=== PATIENT | female | born 1985 | race Caucasian/White ===

== ENCOUNTER 2017-01-28 16:50 | Emergency (ER) | payer MEDICAID ==
[~2017-01-28] VITALS: Ht 170.2 cm; Wt 49.9 kg
[~2017-01-28 16:50] MED LIST: CLIN1CAP3; HYDR7.5T
[2017-01-28] MEDS ORDERED: IPRATROPIUM BROM 0.5 MG/2.5ML INH SOL NEB ONE ×2 (17:15→17:30)
[2017-01-28] MEDS ORDERED: ALBUTEROL SULF 2.5 MG/0.5ML(0.5%) NEB SOLN NEB ONE ×3 (17:15→17:45)
[2017-01-28] MEDS ORDERED: methylPREDNISolone SOD SUCC 125 MG/2 ML VL IM ONE (17:30)
[2017-01-28] MEDS ORDERED: ALBUTEROL SULF 2.5 MG/0.5ML(0.5%) NEB SOLN ONE (17:35)
[2017-01-28 18:06] VITALS: BP 105/63
== END 2017-01-28 18:22 | disposition home or self-care (01) ==
LOC: ER 16:54
DX: J45.901 Unspecified asthma with (acute) exacerbation (principal); J20.9 Acute bronchitis, unspecified; Z90.49 Acquired absence of other specified parts of digestive tract; F17.210 Nicotine dependence, cigarettes, uncomplicated
CPT/HCPCS: 94640; 96372; 99284; J2930

== ENCOUNTER 2019-05-13 14:19 | Emergency (ER) | payer MEDICAID ==
[~2019-05-13] VITALS: Ht 170.2 cm; Wt 52.2 kg
[~2019-05-13 14:19] MED LIST changes: +CLIN150C7; -CLIN1CAP3; +METH5TAB2 PO
[2019-05-13 14:30] VITALS: BP 127/79
== END 2019-05-13 19:04 | disposition left against medical advice (07) ==
LOC: ER 14:19
DX: M54.9 Dorsalgia, unspecified (principal); Z53.21 Procedure and treatment not carried out due to patient leaving prior to being seen by health care provider

== ENCOUNTER 2020-07-22 17:11 | Inpatient (IN) | payer MEDICAID ==
[~2020-07-22] VITALS: Ht 167.6 cm; Wt 62.1 kg
[~2020-07-22 17:11] MED LIST changes: -CLIN150C7; +CLIN150C8
[2020-07-22] MEDS ORDERED: SODIUM CHLORIDE 0.9% 1,000 ML IV ONE (17:30)
[2020-07-22 17:47] LABS: Basophils # (auto) 0.1 10 ^3/uL (0-0.2); Eosinophils # (auto) 0 10 ^3/uL (0-0.8); Lymphocytes # (auto) 1.2 10 ^3/uL (0.4-5.4); White Blood Cell 3.5 10^3/uL (4.4-10.8)
[2020-07-22 17:49] LABS: Monocytes # (auto) 0.2 10 ^3/uL (0-1.3)
[2020-07-22 17:54] LABS: Hematocrit 22.6 % (36.0-46.0); Mean Corpuscular Hemoglobin 24.1 pg (28.0-32.0); Platelet Count (auto) 143 10^3/uL (140-450); Red Blood Cells 2.88 10^6/uL (4.0-5.20)
[2020-07-22 17:57] LABS: Basophils % (auto) 3.3 % (0.0-2.0); Eosinophils % (auto) 1.3 % (0.0-7.0); Lymphocytes % (auto) 32.9 % (10.0-50.0); Mean Corpuscular Hgb Conc. 30.8 g/dL (32.0-36.0); Mean Corpuscular Volume 78.3 fL (80.0-100.0); Monocytes % (auto) 4.5 % (0.0-12.0); Nucleated Red Blood Cells % 0.2 %
[2020-07-22 17:59] LABS: Red Cell Distribution Width 21.7 % (11.8-14.3)
[2020-07-22 18:24] LABS: Albumin 4.2 g/dL (3.4-5.0); Anion Gap 14 (5-15); BUN/Creatinine Ratio 17.1; Blood Urea Nitrogen 7 mg/dL (7-18); Calcium 8.4 mg/dL (8.5-10.1); Carbon Dioxide 23 mmol/L (21-32); Chloride 99 mmol/L (98-107); GFR African American 227 mL/min; GFR Non-African American 188 mL/min; Glucose 126 mg/dL (74-106); Magnesium 1.9 mg/dL (1.6-2.6); Potassium 3.3 mmol/L (3.5-5.1); Sodium 136 mmol/L (136-145)
[2020-07-22] MEDS ORDERED: LORazepam 2MG/ML-1ML VIAL IV ONE (18:30)
[2020-07-22 18:32] LABS: Alanine Aminotransferase 62 U/L (13-56); Alkaline Phosphatase 107 U/L (45-117); Aspartate Aminotransferase 215 U/L (15-37); Bilirubin, Total 0.3 mg/dL (0.2-1.0); Total Protein 8.1 g/dL (6.4-8.2)
[2020-07-22] MEDS ORDERED: ONDANSETRON HCL 4 MG/2 ML VIAL IV PRN (19:30)
[2020-07-22] MEDS ORDERED: MORPHINE SULFATE 4 MG/ML SYR/VIAL IV PRN (19:30)
[2020-07-22] MEDS ORDERED: ACETAMINOPHEN 325 MG TAB PO PRN (19:30)
[2020-07-22] MEDS ORDERED: NITROGLYCERIN 0.4 MG SL TAB SL PRN (19:30)
[2020-07-22] MEDS ORDERED: MEPERIDINE HCL (25 MG/ML) 1ML VIAL IV PRN (19:30)
[2020-07-22 20:18] VITALS: BP 115/71
[2020-07-22 20:40] LABS: Amphetamine Screen, Urine NEGATIVE (NEGATIVE); Barbiturate Scree,Urine NEGATIVE (NEGATIVE); Benzodiazephine Screen, Urine NEGATIVE (NEGATIVE); Cannabinoid Screen, Urine NEGATIVE (NEGATIVE); Cocaine Screen, Urine NEGATIVE (NEGATIVE); Opiate Scree,Urine NEGATIVE (NEGATIVE); Phencyclidine Screen, Urine NEGATIVE (NEGATIVE)
[2020-07-22 20:43] VITALS: BP 110/59
[2020-07-22] MEDS ORDERED: TEMAZEPAM 15 MG CAP PO PRN (22:00)
[2020-07-22 22:44] VITALS: BP 103/63
[2020-07-22 23:00] VITALS: BP 103/67
[2020-07-22] MEDS: SODIUM CHLORIDE 0.9% 1,000 ML IV SCH (23:00)
[2020-07-22] MEDS: FAMOTIDINE 20 MG TAB PO SCH ×2 (23:20→23:47)
[2020-07-23] VITALS (7 sets, daily range): BP systolic 101–127; BP diastolic 61–82
[2020-07-23] MEDS ORDERED: FERR1TAB36 PO (00:56)
[2020-07-23] MEDS: FOLIC ACID 1 MG, MULTIPLE VITAMIN 10 ML, MAGNESIUM SULF SDV 50% 8 MEQ, THIAMINE INJ 100... INJ SCH ×10 (01:07→12:15)
[2020-07-23] MEDS: KETOROLAC TROMETH 30 MG/ML 1ML VIAL IV PRN ×3 (03:48→21:54)
[2020-07-23 06:22] LABS: Eosinophils # (auto) 0 10 ^3/uL (0-0.8); Hemoglobin 7.6 g/dL (12.2-16.2); Lymphocytes # (auto) 0.6 10 ^3/uL (0.4-5.4); Monocytes # (auto) 0.2 10 ^3/uL (0-1.3); Neutrophils # (auto) 2.2 10 ^3/uL (1.6-8.6); Nucleated Red Blood Cells % 0.2 %; Platelet Count (auto) 108 10^3/uL (140-450); White Blood Cell 3.1 10^3/uL (4.4-10.8)
[2020-07-23 06:26] LABS: Basophils # (auto) 0.1 10 ^3/uL (0-0.2); Basophils % (auto) 2.1 % (0.0-2.0); Hematocrit 23.8 % (36.0-46.0); Lymphocytes % (auto) 19.1 % (10.0-50.0); Mean Corpuscular Hemoglobin 26.3 pg (28.0-32.0); Mean Corpuscular Hgb Conc. 32.1 g/dL (32.0-36.0); Mean Corpuscular Volume 82.2 fL (80.0-100.0); Neutrophils % (auto) 71.8 % (37.0-80.0); Red Blood Cells 2.89 10^6/uL (4.0-5.20)
[2020-07-23 06:27] LABS: Red Cell Distribution Width 20.3 % (11.8-14.3)
[2020-07-23 06:32] LABS: Albumin 3.3 g/dL (3.4-5.0); Anion Gap 12 (5-15); Blood Urea Nitrogen 8 mg/dL (7-18); Calcium 7.6 mg/dL (8.5-10.1); Carbon Dioxide 22 mmol/L (21-32); Chloride 104 mmol/L (98-107); Glucose 76 mg/dL (74-106); Potassium 3.7 mmol/L (3.5-5.1); Sodium 138 mmol/L (136-145)
[2020-07-23 07:15] LABS: Alanine Aminotransferase 48 U/L (13-56); Alkaline Phosphatase 88 U/L (45-117); Aspartate Aminotransferase 160 U/L (15-37); BUN/Creatinine Ratio 24.2; Bilirubin, Total 0.3 mg/dL (0.2-1.0); Cholesterol 209 mg/dL (< 200); GFR African American 292 mL/min; GFR Non-African American 241 mL/min; Total Protein 6.6 g/dL (6.4-8.2)
[2020-07-23 07:16] LABS: HDL Cholesterol 100 mg/dL (40-59); Triglycerides 62 mg/dL (< 150)
[2020-07-23] MEDS: FERROUS SULFATE 325 MG TAB PO SCH ×2 (08:44→18:02)
[2020-07-23] MEDS: FAMOTIDINE 20 MG TAB PO SCH ×2 (08:45→21:09)
[2020-07-23] MEDS: ALPRAZolam 0.5 MG TAB PO PRN ×2 (08:57→18:02)
[2020-07-23] MEDS: SODIUM CHLORIDE 0.9% 1,000 ML IV SCH (09:30)
[2020-07-23 13:37] LABS: LDL Cholesterol 57 mg/dL (< 100)
[2020-07-23] MEDS: GABAPENTIN 300 MG CAP PO SCH ×2 (15:18→21:09)
[2020-07-24] MEDS: SODIUM CHLORIDE 0.9% 1,000 ML IV SCH ×2 (04:50→21:13)
[2020-07-24 05:00] VITALS: BP 116/76
[2020-07-24] MEDS: GABAPENTIN 300 MG CAP PO SCH ×3 (05:29→21:13)
[2020-07-24] MEDS: ALPRAZolam 0.5 MG TAB PO PRN ×2 (05:47→15:19)
[2020-07-24 09:00] VITALS: BP 101/66
[2020-07-24] MEDS: METOPROLOL TARTRATE 25 MG TAB PO SCH ×2 (10:18→21:14)
[2020-07-24] MEDS: FAMOTIDINE 20 MG TAB PO SCH ×2 (10:19→21:13)
[2020-07-24] MEDS: FERROUS SULFATE 325 MG TAB PO SCH ×2 (10:19→18:27)
[2020-07-24] MEDS: FOLIC ACID 1 MG, MULTIPLE VITAMIN 10 ML, MAGNESIUM SULF SDV 50% 8 MEQ, THIAMINE INJ 100... INJ SCH ×5 (11:56)
[2020-07-24 13:00] VITALS: BP 104/81
[2020-07-24 13:20] LABS: Urine Bacteria MANY /hpf (None Seen); Urine Blood Negative /uL (Negative); Urine Hyaline Cast FEW /lpf (0 - 2); Urine Specific Gravity 1.012 (1.001-1.035); Urine WBC 2 /hpf (0 - 5)
[2020-07-24 13:42] LABS: Basophils # (auto) 0.1 10 ^3/uL (0-0.2); Eosinophils # (auto) 0.1 10 ^3/uL (0-0.8); Hemoglobin 7.7 g/dL (12.2-16.2); Lymphocytes # (auto) 0.8 10 ^3/uL (0.4-5.4); Monocytes # (auto) 0.1 10 ^3/uL (0-1.3); Neutrophils # (auto) 2.3 10 ^3/uL (1.6-8.6); Red Cell Distribution Width 20.1 % (11.8-14.3); White Blood Cell 3.3 10^3/uL (4.4-10.8)
[2020-07-24 13:44] LABS: Eosinophils % (auto) 2.1 % (0.0-7.0); Hematocrit 24.3 % (36.0-46.0); Lymphocytes % (auto) 23.8 % (10.0-50.0); Mean Corpuscular Hemoglobin 25.9 pg (28.0-32.0); Mean Corpuscular Hgb Conc. 31.7 g/dL (32.0-36.0); Mean Corpuscular Volume 81.7 fL (80.0-100.0); Monocytes % (auto) 3.8 % (0.0-12.0); Neutrophils % (auto) 68.3 % (37.0-80.0); Nucleated Red Blood Cells % 0.6 %; Platelet Count (auto) 134 10^3/uL (140-450); Red Blood Cells 2.98 10^6/uL (4.0-5.20)
[2020-07-24 14:00] LABS: INR 0.97 (0.9-1.15); Partial Thromboplastin Time 24.8 sec (23.0-31.2)
[2020-07-24 14:02] LABS: Albumin 3.2 g/dL (3.4-5.0); Calcium 8.1 mg/dL (8.5-10.1); Magnesium 2.1 mg/dL (1.6-2.6); Potassium 3.7 mmol/L (3.5-5.1)
[2020-07-24 14:07] LABS: BUN/Creatinine Ratio 17.1; Bilirubin, Total 0.4 mg/dL (0.2-1.0); Total Protein 6.4 g/dL (6.4-8.2)
[2020-07-24 17:14] VITALS: BP 110/76
[2020-07-24] MEDS: KETOROLAC TROMETH 30 MG/ML 1ML VIAL IV PRN (20:21)
[2020-07-24 22:00] VITALS: BP 114/67
[2020-07-25] MEDS: GABAPENTIN 300 MG CAP PO SCH ×3 (04:55→21:15)
[2020-07-25] MEDS: ALPRAZolam 0.5 MG TAB PO PRN ×2 (04:55→13:54)
[2020-07-25 04:57] VITALS: BP 113/64
[2020-07-25 09:00] VITALS: BP 111/70
[2020-07-25] MEDS: METOPROLOL TARTRATE 25 MG TAB PO SCH ×2 (10:53→21:15)
[2020-07-25] MEDS: FERROUS SULFATE 325 MG TAB PO SCH ×2 (10:53→18:12)
[2020-07-25] MEDS: FAMOTIDINE 20 MG TAB PO SCH ×2 (10:54→21:15)
[2020-07-25] MEDS: FOLIC ACID 1 MG, MULTIPLE VITAMIN 10 ML, MAGNESIUM SULF SDV 50% 8 MEQ, THIAMINE INJ 100... INJ SCH ×5 (12:49)
[2020-07-25 12:58] VITALS: BP 111/75
[2020-07-25] MEDS: SODIUM CHLORIDE 0.9% 1,000 ML IV SCH (13:32)
[2020-07-25 17:17] VITALS: BP 112/73
[2020-07-25] MEDS: levoFLOXacin 500MG 100 ML IV SCH (18:12)
[2020-07-25 22:00] VITALS: BP 115/78
[2020-07-25] MEDS: LORazepam 0.5 MG TAB PO PRN (22:09)
[2020-07-26] MEDS: SODIUM CHLORIDE 0.9% 1,000 ML IV SCH (05:06)
[2020-07-26] MEDS: GABAPENTIN 300 MG CAP PO SCH (05:06)
[2020-07-26 05:19] VITALS: BP 95/57
[2020-07-26 06:56] LABS: Basophils # (auto) 0.1 10 ^3/uL (0-0.2); Basophils % (auto) 1.2 % (0.0-2.0); Eosinophils # (auto) 0.1 10 ^3/uL (0-0.8); Eosinophils % (auto) 1.5 % (0.0-7.0); Hemoglobin 7.6 g/dL (12.2-16.2); Lymphocytes # (auto) 0.7 10 ^3/uL (0.4-5.4); Lymphocytes % (auto) 17.4 % (10.0-50.0); Mean Corpuscular Hemoglobin 26.5 pg (28.0-32.0); Mean Corpuscular Hgb Conc. 31.7 g/dL (32.0-36.0); Mean Corpuscular Volume 83.6 fL (80.0-100.0); Monocytes # (auto) 0.3 10 ^3/uL (0-1.3); Monocytes % (auto) 6.3 % (0.0-12.0); Neutrophils % (auto) 73.6 % (37.0-80.0); Nucleated Red Blood Cells % 0.3 %; Platelet Count (auto) 164 10^3/uL (140-450); Red Blood Cells 2.87 10^6/uL (4.0-5.20); White Blood Cell 4.1 10^3/uL (4.4-10.8)
[2020-07-26 07:18] LABS: Potassium 3.8 mmol/L (3.5-5.1)
[2020-07-26 07:26] LABS: Albumin 3.1 g/dL (3.4-5.0); BUN/Creatinine Ratio 11.1; Bilirubin, Total 0.3 mg/dL (0.2-1.0); Calcium 8.2 mg/dL (8.5-10.1); Magnesium 2.2 mg/dL (1.6-2.6)
[2020-07-26] MEDS: FERROUS SULFATE 325 MG TAB PO SCH (07:51)
[2020-07-26] MEDS: LORazepam 0.5 MG TAB PO PRN (07:51)
[2020-07-26 09:00] VITALS: BP 109/71
[2020-07-26] MEDS: METOPROLOL TARTRATE 25 MG TAB PO SCH (09:33)
[2020-07-26] MEDS: FAMOTIDINE 20 MG TAB PO SCH (09:33)
[2020-07-26] MEDS: levoFLOXacin 500MG 100 ML IV SCH (10:00)
[2020-07-26 10:05] VITALS: BP 109/71
== END 2020-07-26 11:15 | disposition home health service (06) | DRG 663 ==
LOC: ER 17:11 → TELE 19:33 → TELE-WESTW 22:20
PROVIDERS: ADMIT Nurse Practitioner; ATTEND Nurse Practitioner
PROC: 30230N1 Transfusion of Nonautologous Red Blood Cells into Peripheral Vein, Open Approach (ICD-10-PCS; principal; 2020-07-22)
DX: D50.0 Iron deficiency anemia secondary to blood loss (chronic) (principal); E88.09 Other disorders of plasma-protein metabolism, not elsewhere classified; Z20.822 Contact with and (suspected) exposure to COVID-19; F17.210 Nicotine dependence, cigarettes, uncomplicated; F41.9 Anxiety disorder, unspecified; N39.0 Urinary tract infection, site not specified; N92.0 Excessive and frequent menstruation with regular cycle; J45.909 Unspecified asthma, uncomplicated; R07.89 Other chest pain; F10.129 Alcohol abuse with intoxication, unspecified; R73.9 Hyperglycemia, unspecified; Y90.8 Blood alcohol level of 240 mg/100 ml or more; Z88.8 Allergy status to other drugs, medicaments and biological substances; Z88.6 Allergy status to analgesic agent; Z88.1 Allergy status to other antibiotic agents; Z82.49 Family history of ischemic heart disease and other diseases of the circulatory system; Z90.49 Acquired absence of other specified parts of digestive tract; Z98.51 Tubal ligation status
CPT/HCPCS: 36415; 36430; 71045; 76830; 76856; 80053; 80061; 80307; 80320; 81001; 83735; 84443; 84484; 85025; 85610; 85730; 86850; 86900; 86901; 86920; 87426; 93005; 93306; 96361; 96374; 96375; G0378; J1885; J1956

== ENCOUNTER 2020-12-17 14:23 | Emergency (ER) | payer MEDICAID ==
[~2020-12-17] VITALS: Ht 170.2 cm; Wt 54.4 kg
[~2020-12-17 14:23] MED LIST changes: +FERR1TAB36 PO
[2020-12-17 14:29] VITALS: BP 112/76
== END 2020-12-17 15:08 | disposition left against medical advice (07) ==
LOC: ER 14:23
DX: F10.10 Alcohol abuse, uncomplicated (principal); R11.2 Nausea with vomiting, unspecified; J02.9 Acute pharyngitis, unspecified; Z53.21 Procedure and treatment not carried out due to patient leaving prior to being seen by health care provider; Y90.9 Presence of alcohol in blood, level not specified

== ENCOUNTER 2020-12-18 10:01 | Inpatient (IN) | payer MEDICAID ==
[~2020-12-18] VITALS: Ht 170.2 cm; Wt 86.4 kg
[2020-12-18] MEDS ORDERED: chlordiazePOXIDE HCL 5 MG CAP PO ONE (11:00)
[2020-12-18] MEDS ORDERED: SODIUM CHLORIDE 0.9% 1,000 ML IV ONE (11:00)
[2020-12-18] MEDS ORDERED: THIAMINE 100mg/ml INJ (200mg/2ml VIAL) IV ONE (11:00)
[2020-12-18 11:14] LABS: Basophils # (auto) 0.1 10 ^3/uL (0-0.2); Basophils % (auto) 0.6 % (0.0-2.0); Eosinophils # (auto) 0 10 ^3/uL (0-0.8); Hematocrit 46.6 % (36.0-46.0); Lymphocytes # (auto) 0.3 10 ^3/uL (0.4-5.4); Lymphocytes % (auto) 3.1 % (10.0-50.0); Mean Corpuscular Hemoglobin 31.9 pg (28.0-32.0); Mean Corpuscular Hgb Conc. 32.1 g/dL (32.0-36.0); Mean Corpuscular Volume 99.3 fL (80.0-100.0); Monocytes # (auto) 0.7 10 ^3/uL (0-1.3); Monocytes % (auto) 6.2 % (0.0-12.0); Neutrophils # (auto) 9.9 10 ^3/uL (1.6-8.6); Neutrophils % (auto) 90.1 % (37.0-80.0); Nucleated Red Blood Cells % 0.1 %; Red Cell Distribution Width 15.2 % (11.8-14.3)
[2020-12-18 11:48] LABS: Albumin 5.1 g/dL (3.4-5.0); Anion Gap 26 (5-15); Blood Urea Nitrogen 19 mg/dL (7-18); Calcium 9.4 mg/dL (8.5-10.1); Chloride 96 mmol/L (98-107); Glucose 136 mg/dL (74-106); Potassium 5.5 mmol/L (3.5-5.1); Sodium 131 mmol/L (136-145)
[2020-12-18 11:52] LABS: Alanine Aminotransferase 61 U/L (13-56); Alkaline Phosphatase 143 U/L (45-117); Aspartate Aminotransferase 108 U/L (15-37); Bilirubin, Total 1.7 mg/dL (0.2-1.0); Blood Alcohol < 3.0 mg/dL (0-5); GFR African American 47 mL/min; GFR Non-African American 39 mL/min; Total Protein 9.8 g/dL (6.4-8.2)
[2020-12-18 11:54] LABS: BUN/Creatinine Ratio 11.9; Carbon Dioxide 9 mmol/L (21-32)
[2020-12-18] MEDS ORDERED: InsuLIN REG 1unit/0.01ml Soln (100units/ml) IV ONE (12:15)
[2020-12-18] MEDS ORDERED: SODIUM ZIRCONIUM CYCL 10 GM PAK PO ONE (12:15)
[2020-12-18] MEDS ORDERED: CALCIUM GLUC 1,000mg/50ml-NS 50 ML IV ONE (12:15)
[2020-12-18] MEDS ORDERED: DEXTROSE (50%) 50ML SYRG IV ONE (12:15)
[2020-12-18] MEDS ORDERED: ALBUTEROL SULF 2.5 MG/0.5ML(0.5%) NEB SOLN NEB ONE (12:15)
[2020-12-18] MEDS ORDERED: NITROGLYCERIN 0.4 MG SL TAB SL PRN (12:45)
[2020-12-18] MEDS ORDERED: MORPHINE SULFATE INJECTION 2 MG/ML SYRG IV PRN (12:45)
[2020-12-18] MEDS ORDERED: SODIUM CHLORIDE 0.9% 1,000 ML IV SCH (12:45)
[2020-12-18] MEDS: MORPHINE SULFATE INJECTION 2 MG/ML SYRG IV PRN (18:41)
[2020-12-18] MEDS: ONDANSETRON HCL 4 MG/2 ML VIAL IV PRN (18:41)
[2020-12-18] MEDS: SODIUM BICARBONATE 50ML VIAL 150 ML in D5W 5% 1,000 ML IV SCH ×2 (18:41→21:51)
[2020-12-18] MEDS: GABAPENTIN 300 MG CAP PO SCH (21:34)
[2020-12-18 21:54] VITALS: BP 123/88
[2020-12-18 23:13] VITALS: BP 123/88
[2020-12-19] MEDS: MORPHINE SULFATE INJECTION 2 MG/ML SYRG IV PRN ×2 (00:21→11:00)
[2020-12-19] MEDS: ONDANSETRON HCL 4 MG/2 ML VIAL IV PRN (00:21)
[2020-12-19] MEDS ORDERED: SODIUM BICARBONATE 8.4 % INJ 50ML VIAL IV ONE ×2 (04:34→04:35)
[2020-12-19] MEDS: SODIUM BICARBONATE 50ML VIAL 150 ML in D5W 5% 1,000 ML IV SCH ×3 (04:49→09:40)
[2020-12-19 05:00] VITALS: BP 121/75
[2020-12-19] MEDS: GABAPENTIN 300 MG CAP PO SCH ×3 (06:00→22:24)
[2020-12-19 06:49] LABS: Basophils # (auto) 0 10 ^3/uL (0-0.2); Basophils % (auto) 0.7 % (0.0-2.0); Eosinophils # (auto) 0 10 ^3/uL (0-0.8); Eosinophils % (auto) 0.6 % (0.0-7.0); Hematocrit 36.2 % (36.0-46.0); Hemoglobin 12.2 g/dL (12.2-16.2); Lymphocytes # (auto) 0.5 10 ^3/uL (0.4-5.4); Lymphocytes % (auto) 12.3 % (10.0-50.0); Mean Corpuscular Hemoglobin 31.5 pg (28.0-32.0); Mean Corpuscular Hgb Conc. 33.6 g/dL (32.0-36.0); Mean Corpuscular Volume 93.7 fL (80.0-100.0); Monocytes # (auto) 0.2 10 ^3/uL (0-1.3); Monocytes % (auto) 5.3 % (0.0-12.0); Neutrophils # (auto) 3.2 10 ^3/uL (1.6-8.6); Neutrophils % (auto) 81.1 % (37.0-80.0); Nucleated Red Blood Cells % 0.1 %; Red Blood Cells 3.87 10^6/uL (4.0-5.20); Red Cell Distribution Width 14.6 % (11.8-14.3); White Blood Cell 3.9 10^3/uL (4.4-10.8)
[2020-12-19 07:06] LABS: Albumin 3.8 g/dL (3.4-5.0); Calcium 8.7 mg/dL (8.5-10.1); Potassium 3.3 mmol/L (3.5-5.1)
[2020-12-19 07:13] LABS: BUN/Creatinine Ratio 18.3; Bilirubin, Total 1.4 mg/dL (0.2-1.0); Total Protein 7.3 g/dL (6.4-8.2)
[2020-12-19 09:00] VITALS: BP 105/67
[2020-12-19] MEDS: PANTOPRAZOLE 40 MG/10 ML VIAL INJ IV SCH (09:35)
[2020-12-19 13:00] VITALS: BP 113/64
[2020-12-19] MEDS: FOLIC ACID 1 MG, MULTIPLE VITAMIN 10 ML, MAGNESIUM SULF SDV 50% 8 MEQ, THIAMINE INJ 100... INJ SCH ×5 (13:04)
[2020-12-19 16:52] VITALS: BP 101/70
[2020-12-19 22:00] VITALS: BP 108/66
[2020-12-19] MEDS: SUCRALFATE 1 GM/10 ML ORAL SUSP PO SCH (22:23)
[2020-12-19] MEDS: METOPROLOL TARTRATE 25 MG TAB PO SCH (22:24)
[2020-12-20] MEDS: MORPHINE SULFATE INJECTION 2 MG/ML SYRG IV PRN ×2 (00:53→10:30)
[2020-12-20] MEDS: ONDANSETRON HCL 4 MG/2 ML VIAL IV PRN ×2 (00:53→10:29)
[2020-12-20] MEDS: SODIUM CHLORIDE 0.9% 1,000 ML IV SCH ×3 (01:14→16:50)
[2020-12-20 05:00] VITALS: BP 104/60
[2020-12-20 06:15] LABS: Hemoglobin 10.5 g/dL (12.2-16.2); Mean Corpuscular Hemoglobin 32.4 pg (28.0-32.0); White Blood Cell 3.9 10^3/uL (4.4-10.8)
[2020-12-20 06:18] LABS: Basophils # (auto) 0 10 ^3/uL (0-0.2); Basophils % (auto) 0.5 % (0.0-2.0); Eosinophils # (auto) 0 10 ^3/uL (0-0.8); Eosinophils % (auto) 0.8 % (0.0-7.0); Lymphocytes # (auto) 0.9 10 ^3/uL (0.4-5.4); Lymphocytes % (auto) 22.4 % (10.0-50.0); Mean Corpuscular Hgb Conc. 34.9 g/dL (32.0-36.0); Mean Corpuscular Volume 92.8 fL (80.0-100.0); Monocytes # (auto) 0.2 10 ^3/uL (0-1.3); Monocytes % (auto) 5.2 % (0.0-12.0); Neutrophils # (auto) 2.8 10 ^3/uL (1.6-8.6); Neutrophils % (auto) 71.1 % (37.0-80.0); Nucleated Red Blood Cells % 0.2 %; Red Blood Cells 3.23 10^6/uL (4.0-5.20); Red Cell Distribution Width 14.6 % (11.8-14.3)
[2020-12-20 06:27] LABS: Albumin 3.2 g/dL (3.4-5.0); BUN/Creatinine Ratio 19.6; Calcium 8.2 mg/dL (8.5-10.1)
[2020-12-20 06:30] LABS: Bilirubin, Total 0.8 mg/dL (0.2-1.0); Total Protein 6.4 g/dL (6.4-8.2)
[2020-12-20 06:37] LABS: Potassium 2.7 mmol/L (3.5-5.1)
[2020-12-20] MEDS: GABAPENTIN 300 MG CAP PO SCH ×3 (06:55→23:01)
[2020-12-20] MEDS: SUCRALFATE 1 GM/10 ML ORAL SUSP PO SCH ×4 (06:55→23:02)
[2020-12-20 09:00] VITALS: BP 108/73
[2020-12-20] MEDS: METOPROLOL TARTRATE 25 MG TAB PO SCH ×2 (10:22→21:42)
[2020-12-20] MEDS: PANTOPRAZOLE 40 MG/10 ML VIAL INJ IV SCH (10:22)
[2020-12-20] MEDS: FOLIC ACID 1 MG, MULTIPLE VITAMIN 10 ML, MAGNESIUM SULF SDV 50% 8 MEQ, THIAMINE INJ 100... INJ SCH ×5 (11:58)
[2020-12-20] MEDS ORDERED: POTASSIUM CHL 20 Meq TABLET PO ONE (12:30)
[2020-12-20] MEDS ORDERED: POTASSIUM CHLORIDE 20 MEQ, LIDOCAINE 1% (LOCAL ANESTH.) 2 ML in SODIUM CHL 0.9% 100 ML IV ONE (12:30)
[2020-12-20 13:00] VITALS: BP 111/74
[2020-12-20] MEDS: MAGNESIUM SULFATE 1GM/100ML 100 ML IV SCH ×2 (15:00→17:37)
[2020-12-20 16:40] VITALS: BP 107/65
[2020-12-20 22:00] VITALS: BP 95/57
[2020-12-21 05:00] VITALS: BP 104/57
[2020-12-21 06:37] LABS: Basophils # (auto) 0 10 ^3/uL (0-0.2); Eosinophils # (auto) 0 10 ^3/uL (0-0.8); Hemoglobin 10.4 g/dL (12.2-16.2); Lymphocytes # (auto) 0.7 10 ^3/uL (0.4-5.4); Mean Corpuscular Hemoglobin 31.6 pg (28.0-32.0); Mean Corpuscular Volume 93.8 fL (80.0-100.0); Neutrophils # (auto) 1.5 10 ^3/uL (1.6-8.6)
[2020-12-21 06:41] LABS: Eosinophils % (auto) 1.7 % (0.0-7.0); Hematocrit 30.9 % (36.0-46.0); Mean Corpuscular Hgb Conc. 33.7 g/dL (32.0-36.0); Monocytes # (auto) 0.1 10 ^3/uL (0-1.3); Monocytes % (auto) 4.8 % (0.0-12.0); Neutrophils % (auto) 62.5 % (37.0-80.0); Nucleated Red Blood Cells % 0.4 %; Red Cell Distribution Width 14.5 % (11.8-14.3); White Blood Cell 2.3 10^3/uL (4.4-10.8)
[2020-12-21] MEDS: SUCRALFATE 1 GM/10 ML ORAL SUSP PO SCH ×4 (06:45→22:00)
[2020-12-21] MEDS: GABAPENTIN 300 MG CAP PO SCH ×3 (06:45→22:42)
[2020-12-21 06:50] LABS: Calcium 8.2 mg/dL (8.5-10.1); Magnesium 2.6 mg/dL (1.6-2.6); Potassium 3.1 mmol/L (3.5-5.1)
[2020-12-21 06:55] LABS: Bilirubin, Total 0.8 mg/dL (0.2-1.0); Total Protein 6.1 g/dL (6.4-8.2)
[2020-12-21 07:00] LABS: Phosphorus 0.7 mg/dL (2.5-4.90)
[2020-12-21 09:00] VITALS: BP 124/62
[2020-12-21] MEDS ORDERED: POTASSIUM PHOSPHATE 44 MEQ in D5W 5% 250 ML IV ONE (09:00)
[2020-12-21] MEDS: PANTOPRAZOLE 40 MG/10 ML VIAL INJ IV SCH (10:25)
[2020-12-21] MEDS: METOPROLOL TARTRATE 25 MG TAB PO SCH ×2 (10:25→22:42)
[2020-12-21 13:00] VITALS: BP 107/66
[2020-12-21] MEDS: SODIUM CHLORIDE 0.9% 1,000 ML IV SCH (15:05)
[2020-12-21] MEDS: MORPHINE SULFATE INJECTION 2 MG/ML SYRG IV PRN (15:05)
[2020-12-21] MEDS: ONDANSETRON HCL 4 MG/2 ML VIAL IV PRN (15:06)
[2020-12-21 17:00] VITALS: BP 104/62
[2020-12-21] MEDS: ALPRAZolam 0.5 MG TAB PO PRN (19:52)
[2020-12-21 22:00] VITALS: BP 99/61
[2020-12-21] MEDS ORDERED: LORazepam 2MG/ML-1ML VIAL IV PRN (23:15)
[2020-12-21] MEDS ORDERED: chlordiazePOXIDE HCL 25 MG CAP PO PRN (23:15)
[2020-12-22] MEDS: FOLIC ACID 1 MG, MULTIPLE VITAMIN 10 ML, MAGNESIUM SULF SDV 50% 8 MEQ, THIAMINE INJ 100... INJ SCH ×10 (02:00→19:00)
[2020-12-22] MEDS: ONDANSETRON HCL 4 MG/2 ML VIAL IV PRN ×3 (02:04→16:15)
[2020-12-22] MEDS: MORPHINE SULFATE INJECTION 2 MG/ML SYRG IV PRN ×3 (02:05→16:15)
[2020-12-22 05:00] VITALS: BP 99/64
[2020-12-22 05:26] LABS: Albumin 2.7 g/dL (3.4-5.0); BUN/Creatinine Ratio 12.1; Calcium 7.5 mg/dL (8.5-10.1); Magnesium 1.9 mg/dL (1.6-2.6)
[2020-12-22 05:29] LABS: Bilirubin, Total 0.4 mg/dL (0.2-1.0); Total Protein 5.8 g/dL (6.4-8.2)
[2020-12-22 06:01] LABS: Potassium 2.9 mmol/L (3.5-5.1)
[2020-12-22] MEDS ORDERED: POTASSIUM CHL 20 Meq TABLET PO ONE (06:15)
[2020-12-22] MEDS: GABAPENTIN 300 MG CAP PO SCH ×3 (06:55→21:24)
[2020-12-22] MEDS: POTASSIUM CHL 20MEQ/100ML 100 ML IV SCH ×2 (06:55→08:34)
[2020-12-22] MEDS: SUCRALFATE 1 GM/10 ML ORAL SUSP PO SCH ×4 (07:00→21:24)
[2020-12-22 09:00] VITALS: BP 95/56
[2020-12-22] MEDS: PANTOPRAZOLE 40 MG/10 ML VIAL INJ IV SCH (09:58)
[2020-12-22] MEDS: METOPROLOL TARTRATE 25 MG TAB PO SCH ×2 (10:00→22:00)
[2020-12-22] MEDS: MAGNESIUM SULFATE 1GM/100ML 100 ML IV SCH ×2 (12:00→13:00)
[2020-12-22 13:00] VITALS: BP 114/74
[2020-12-22] MEDS: SODIUM CHLORIDE 0.9% 1,000 ML IV SCH (15:00)
[2020-12-22] MEDS ORDERED: POTASSIUM PHOSPHATE 44 MEQ in D5W 5% 250 ML IV ONE (16:00)
[2020-12-22] MEDS ORDERED: SODIUM PHOSPHATES 40 MEQ in D5W 5% 250 ML IV ONE (16:00)
[2020-12-22] MEDS: ALPRAZolam 0.5 MG TAB PO PRN (21:25)
[2020-12-22 22:19] VITALS: BP 110/69
[2020-12-23] MEDS: MORPHINE SULFATE INJECTION 2 MG/ML SYRG IV PRN ×3 (03:50→13:38)
[2020-12-23 05:30] VITALS: BP 104/54
[2020-12-23] MEDS: SUCRALFATE 1 GM/10 ML ORAL SUSP PO SCH ×2 (07:05→12:32)
[2020-12-23] MEDS: GABAPENTIN 300 MG CAP PO SCH ×2 (07:06→13:41)
[2020-12-23] MEDS: METOPROLOL TARTRATE 25 MG TAB PO SCH (08:43)
[2020-12-23] MEDS: ONDANSETRON HCL 4 MG/2 ML VIAL IV PRN ×2 (08:44→13:38)
[2020-12-23] MEDS: PANTOPRAZOLE 40 MG/10 ML VIAL INJ IV SCH (08:44)
[2020-12-23 08:59] LABS: Albumin 3.3 g/dL (3.4-5.0); BUN/Creatinine Ratio 8.6; Calcium 8.5 mg/dL (8.5-10.1); Potassium 3.8 mmol/L (3.5-5.1)
[2020-12-23 09:00] VITALS: BP 101/65
[2020-12-23 09:02] LABS: Bilirubin, Total 0.3 mg/dL (0.2-1.0)
[2020-12-23] MEDS: FOLIC ACID 1 MG, MULTIPLE VITAMIN 10 ML, MAGNESIUM SULF SDV 50% 8 MEQ, THIAMINE INJ 100... INJ SCH ×5 (11:44)
[2020-12-23 12:28] VITALS: BP 106/65
[2020-12-23 13:00] VITALS: BP 104/70
[2020-12-23 17:00] VITALS: BP 110/66
== END 2020-12-23 17:17 | disposition home or self-care (01) | DRG 241 ==
LOC: ER 10:01 → TELE 12:34 → TELE-WESTW 20:54
PROVIDERS: ADMIT Internal Medicine; ATTEND Internal Medicine
DX: K29.20 Alcoholic gastritis without bleeding (principal); N17.0 Acute kidney failure with tubular necrosis; K70.40 Alcoholic hepatic failure without coma; F10.131 Alcohol abuse with withdrawal delirium; E83.39 Other disorders of phosphorus metabolism; E87.1 Hypo-osmolality and hyponatremia; D72.829 Elevated white blood cell count, unspecified; E87.2 Acidosis; E87.5 Hyperkalemia; E80.6 Other disorders of bilirubin metabolism; E86.0 Dehydration; E87.6 Hypokalemia; Z20.822 Contact with and (suspected) exposure to COVID-19; F17.210 Nicotine dependence, cigarettes, uncomplicated; J45.909 Unspecified asthma, uncomplicated; Y90.9 Presence of alcohol in blood, level not specified; K76.0 Fatty (change of) liver, not elsewhere classified; Z79.899 Other long term (current) drug therapy; Z82.49 Family history of ischemic heart disease and other diseases of the circulatory system; Z83.3 Family history of diabetes mellitus; Z90.49 Acquired absence of other specified parts of digestive tract; Z88.5 Allergy status to narcotic agent; Z88.8 Allergy status to other drugs, medicaments and biological substances; Z98.51 Tubal ligation status
CPT/HCPCS: 36415; 36600; 70551; 71045; 76705; 80053; 80320; 82805; 83735; 84100; 84132; 84484; 85025; 87426; 93005; 94640; 96361; 96374; 96375; C9113; G0378; J2001; J2405; J3480; J7060

== ENCOUNTER 2022-02-18 11:41 | Emergency (ER) | payer MEDICAID ==
[~2022-02-18] VITALS: Ht 170.2 cm; Wt 55.0 kg
[2022-02-18 11:41] VITALS: BP 131/64
[2022-02-18] MEDS ORDERED: LORazepam 2MG/ML-1ML VIAL IV ONE (12:00)
[2022-02-18] MEDS ORDERED: SODIUM CHLORIDE 0.9% 1,000 ML IV ONE (12:00)
[2022-02-18 12:49] LABS: Basophils # (auto) 0 10 ^3/uL (0-0.2); Basophils % (auto) 0.3 % (0.0-2.0); Eosinophils # (auto) 0 10 ^3/uL (0-0.8); Hemoglobin 10.5 g/dL (12.2-16.2); Lymphocytes # (auto) 0.5 10 ^3/uL (0.4-5.4); Lymphocytes % (auto) 3.8 % (10.0-50.0); Monocytes # (auto) 0.5 10 ^3/uL (0-1.3)
[2022-02-18 12:51] LABS: Hematocrit 32.3 % (36.0-46.0); Mean Corpuscular Hemoglobin 27.4 pg (28.0-32.0); Mean Corpuscular Hgb Conc. 32.5 g/dL (32.0-36.0); Mean Corpuscular Volume 84.3 fL (80.0-100.0); Neutrophils # (auto) 11.6 10 ^3/uL (1.6-8.6); Neutrophils % (auto) 91.9 % (37.0-80.0); Red Blood Cells 3.84 10^6/uL (4.0-5.20); Red Cell Distribution Width 20.6 % (11.8-14.3); White Blood Cell 12.6 10^3/uL (4.4-10.8)
[2022-02-18 12:52] LABS: Chloride 99 mmol/L (98-107); Potassium 3.8 mmol/L (3.5-5.1); Sodium 134 mmol/L (136-145)
[2022-02-18 12:55] LABS: Anion Gap 16 (5-15); Blood Urea Nitrogen 6 mg/dL (7-18); Carbon Dioxide 19 mmol/L (21-32); Glucose 116 mg/dL (74-106)
[2022-02-18 12:56] LABS: BUN/Creatinine Ratio 11.8; Blood Alcohol < 3.0 mg/dL (0-5); GFR African American 175 mL/min; GFR Non-African American 145 mL/min; Magnesium 1.1 mg/dL (1.6-2.6)
[2022-02-18 12:59] LABS: Alanine Aminotransferase 42 U/L (13-56); Alkaline Phosphatase 89 U/L (45-117); Aspartate Aminotransferase 33 U/L (15-37); Bilirubin, Total 1.5 mg/dL (0.2-1.0); Total Protein 7.4 g/dL (6.4-8.2)
== END 2022-02-18 13:13 | disposition home or self-care (01) ==
LOC: ER 11:41
DX: F10.239 Alcohol dependence with withdrawal, unspecified (principal); R07.89 Other chest pain; J45.909 Unspecified asthma, uncomplicated; F17.210 Nicotine dependence, cigarettes, uncomplicated; Z86.2 Personal history of diseases of the blood and blood-forming organs and certain disorders involving the immune mechanism; Z90.49 Acquired absence of other specified parts of digestive tract; Z88.1 Allergy status to other antibiotic agents; Z88.5 Allergy status to narcotic agent; Z88.8 Allergy status to other drugs, medicaments and biological substances; Y90.0 Blood alcohol level of less than 20 mg/100 ml
CPT/HCPCS: 36415; 80053; 80320; 83735; 84484; 85025; 85379; 93005

== ENCOUNTER 2022-02-18 14:41 | Inpatient (IN) | payer MEDICAID ==
[~2022-02-18] VITALS: Ht 170.2 cm; Wt 56.0 kg
[2022-02-18] MEDS ORDERED: ACETAMINOPHEN 500 MG TAB PO ONE (16:30)
[2022-02-18] MEDS ORDERED: SODIUM CHLORIDE 0.9% 1,000 ML IVB ONE (16:30)
[2022-02-18 16:59] LABS: Basophils # (auto) 0.1 10 ^3/uL (0-0.2); Basophils % (auto) 0.5 % (0.0-2.0); Eosinophils # (auto) 0 10 ^3/uL (0-0.8); Hematocrit 35.5 % (36.0-46.0); Hemoglobin 11.6 g/dL (12.2-16.2); Lymphocytes # (auto) 0.9 10 ^3/uL (0.4-5.4); Lymphocytes % (auto) 6.6 % (10.0-50.0); Mean Corpuscular Hemoglobin 27.2 pg (28.0-32.0); Mean Corpuscular Hgb Conc. 32.6 g/dL (32.0-36.0); Mean Corpuscular Volume 83.3 fL (80.0-100.0); Monocytes # (auto) 0.5 10 ^3/uL (0-1.3); Monocytes % (auto) 3.3 % (0.0-12.0); Neutrophils # (auto) 12.3 10 ^3/uL (1.6-8.6); Neutrophils % (auto) 89.6 % (37.0-80.0); Red Blood Cells 4.26 10^6/uL (4.0-5.20); Red Cell Distribution Width 19.9 % (11.8-14.3); White Blood Cell 13.7 10^3/uL (4.4-10.8)
[2022-02-18 17:21] LABS: Albumin 4.1 g/dL (3.4-5.0); Calcium 9.1 mg/dL (8.5-10.1); Magnesium 1.3 mg/dL (1.6-2.6); Potassium 3.2 mmol/L (3.5-5.1)
[2022-02-18 17:22] LABS: BUN/Creatinine Ratio 9.5
[2022-02-18 17:26] LABS: Bilirubin, Total 1.5 mg/dL (0.2-1.0); Total Protein 8.5 g/dL (6.4-8.2)
[2022-02-18] MEDS ORDERED: LORazepam 0.5 MG TAB PO ONE (21:45)
[2022-02-19] MEDS ORDERED: DOCUSATE SOD 100 MG CAP PO PRN (04:00)
[2022-02-19] MEDS ORDERED: MAGNESIUM SULFATE 1GM/100ML 100 ML IV ONE (04:00)
[2022-02-19] MEDS ORDERED: LORazepam 2MG/ML-1ML VIAL IV PRN (04:00)
[2022-02-19] MEDS ORDERED: SODIUM CHLORIDE 0.9% 1,000 ML IV SCH (04:00)
[2022-02-19] MEDS ORDERED: NITROGLYCERIN 0.4 MG SL TAB SL PRN (04:00)
[2022-02-19] MEDS ORDERED: ACETAMINOPHEN 325 MG TAB PO PRN (04:00)
[2022-02-19] MEDS ORDERED: ONDANSETRON HCL 4 MG/2 ML VIAL IV PRN (04:00)
[2022-02-19 07:36] LABS: BUN/Creatinine Ratio 12.2; Bilirubin, Total 1.1 mg/dL (0.2-1.0); Calcium 9.5 mg/dL (8.5-10.1); Total Protein 7.7 g/dL (6.4-8.2)
[2022-02-19] MEDS ORDERED: FOLIC ACID 1 MG TAB PO SCH (10:00)
[2022-02-19] MEDS ORDERED: THIAMINE HCL 100 MG TAB PO SCH (10:00)
[2022-02-19] MEDS ORDERED: MULTIPLE VITAMIN TAB PO SCH (10:00)
[2022-02-19] MEDS ORDERED: levoFLOXacin 250MG 50 ML IV SCH (10:00)
[2022-02-19 11:46] LABS: Basophils # (auto) 0.1 10 ^3/uL (0-0.2); Basophils % (auto) 0.7 % (0.0-2.0); Eosinophils # (auto) 0.1 10 ^3/uL (0-0.8); Eosinophils % (auto) 0.6 % (0.0-7.0); Hematocrit 34.7 % (36.0-46.0); Hemoglobin 11.4 g/dL (12.2-16.2); Lymphocytes # (auto) 1.5 10 ^3/uL (0.4-5.4); Lymphocytes % (auto) 16.6 % (10.0-50.0); Mean Corpuscular Hemoglobin 27.8 pg (28.0-32.0); Mean Corpuscular Hgb Conc. 32.8 g/dL (32.0-36.0); Mean Corpuscular Volume 84.8 fL (80.0-100.0); Monocytes # (auto) 0.4 10 ^3/uL (0-1.3); Monocytes % (auto) 4.7 % (0.0-12.0); Neutrophils # (auto) 7.1 10 ^3/uL (1.6-8.6); Neutrophils % (auto) 77.4 % (37.0-80.0); Nucleated Red Blood Cells % 0.1 %; Red Blood Cells 4.09 10^6/uL (4.0-5.20); White Blood Cell 9.1 10^3/uL (4.4-10.8)
[2022-02-19 11:47] LABS: Red Cell Distribution Width 20.3 % (11.8-14.3)
[2022-02-19] MEDS ORDERED: HYDROcodone-ACET 5/325MG TAB PO PRN (15:30)
[2022-02-19] MEDS: POTASSIUM CHL 20MEQ/100ML 100 ML IV SCH ×2 (16:32→16:33)
[2022-02-19] MEDS ORDERED: FOLIC ACID 1 MG, MULTIPLE VITAMIN 10 ML, MAGNESIUM SULF SDV 50% 8 MEQ, THIAMINE INJ 100... INJ SCH ×5 (16:45)
[2022-02-19 21:00] VITALS: BP 110/61
== END 2022-02-19 21:54 | disposition left against medical advice (07) | DRG 241 ==
LOC: ER 14:41 → TELE 02-19 03:57
PROVIDERS: ADMIT Nurse Practitioner Family; ATTEND Nurse Practitioner
DX: K29.20 Alcoholic gastritis without bleeding (principal); F10.129 Alcohol abuse with intoxication, unspecified; F17.210 Nicotine dependence, cigarettes, uncomplicated; F10.139 Alcohol abuse with withdrawal, unspecified; F41.9 Anxiety disorder, unspecified; J45.909 Unspecified asthma, uncomplicated; Z53.29 Procedure and treatment not carried out because of patient's decision for other reasons; Z20.822 Contact with and (suspected) exposure to COVID-19; M54.9 Dorsalgia, unspecified; Z88.1 Allergy status to other antibiotic agents; Z88.5 Allergy status to narcotic agent; Z83.3 Family history of diabetes mellitus; Z90.49 Acquired absence of other specified parts of digestive tract; Z82.49 Family history of ischemic heart disease and other diseases of the circulatory system
CPT/HCPCS: 36415; 71045; 73610; 73630; 74176; 80053; 83605; 83690; 83735; 84484; 84702; 85025; 87040; 87426; 87804; 96374; G0378